=== PATIENT | male | born 1975 | race Two or more races ===

== ENCOUNTER 2017-12-20 09:28 | Emergency (ER) | payer OTHER ==
[~2017-12-20] VITALS: Ht 170.2 cm; Wt 108.9 kg
[2017-12-20 09:48] VITALS: BP 155/82
[2017-12-20] MEDS ORDERED: KETOROLAC TROMETH 60MG/2ML VIAL IM ONE (10:15)
== END 2017-12-20 10:39 | disposition home or self-care (01) ==
LOC: ER 09:28
DX: S52.502A Unspecified fracture of the lower end of left radius, initial encounter for closed fracture (principal); W19.XXXA Unspecified fall, initial encounter; Y93.89 Activity, other specified; Y99.8 Other external cause status; Y92.89 Other specified places as the place of occurrence of the external cause
CPT/HCPCS: 29125; 73110; 96372; 99284; J1885